=== PATIENT | female | born 1975 | race Caucasian/White ===

== ENCOUNTER 2018-11-09 17:49 | Emergency (ER) | payer SELFPAY ==
[~2018-11-09] VITALS: Ht 165.1 cm; Wt 68.0 kg
[2018-11-09 17:51] VITALS: Ht 165.1 cm; Wt 68.0 kg
[2018-11-09 19:57] VITALS: BP 157/93
== END 2018-11-09 19:57 | disposition home or self-care (01) ==
LOC: ED 17:49
DX: T78.04XA Anaphylactic reaction due to fruits and vegetables, initial encounter (principal); X58.XXXA Exposure to other specified factors, initial encounter
CPT/HCPCS: J0171; J1200; J2930; J3490

== ENCOUNTER 2019-07-07 17:09 | Inpatient (IN) | payer MEDICAID ==
[~2019-07-07] VITALS: Ht 157.5 cm; Wt 67.7 kg
[2019-07-07 17:20] VITALS: Ht 157.5 cm; Wt 67.7 kg
[2019-07-07 18:08] LABS: BASOPHIL % 0.7 % (0-2); PLATELET COUNT 392 x10^3mcL (130-400)
[2019-07-07 18:12] LABS: RED CELL DISTRIBUTION WIDTH 15.1 % (11.5-14.5)
[2019-07-07 18:16] LABS: CALCIUM 8.4 mg/dL (8.5-10.1); CARBON DIOXIDE 28.9 mmol/L (21-32); CHLORIDE SERUM 105 mmol/L (98-107); CREATININE SERUM 0.9 mg/dL (0.6-1.0); GFR1 > 60 mL/min; GLUCOSE SERUM 90 mg/dL (74-106); POTASSIUM SERUM 4.4 mmol/L (3.5-5.1); SODIUM SERUM 138 mmol/L (136-145)
[2019-07-07 18:20] LABS: ALBUMIN 3.5 g/dL (3.4-5.0); ALKALINE PHOSPHATASE 148 U/L (46-116); ALT/SGPT 20 U/L (14-59); AST/SGOT 24 U/L (15-37); BILIRUBIN TOTAL 0.1 mg/dL (0.20-1.00)
[2019-07-07 19:09] LABS: microscopic required? YES; urine erythrocyte TRACE (NEGATIVE)
[2019-07-07 19:18] LABS: AMPHETAMINE QUAL UR NONE DETECTED (See below)
[2019-07-07 19:19] LABS: CALCIUM 8.7 mg/dL (8.5-10.1); MAGNESIUM 2.7 mg/dL (1.8-2.4)
[2019-07-07 21:45] VITALS: BP 118/68
[2019-07-07 21:58] VITALS: BP 151/85
[2019-07-08 04:41] VITALS: BP 134/81
[2019-07-08 06:42] LABS: CARBON DIOXIDE 25.5 mmol/L (21-32); CHLORIDE SERUM 108 mmol/L (98-107); CREATININE SERUM 0.8 mg/dL (0.6-1.0); GFR1 > 60 mL/min; GLUCOSE SERUM 84 mg/dL (74-106); MAGNESIUM 2.3 mg/dL (1.8-2.4); POTASSIUM SERUM 3.7 mmol/L (3.5-5.1); SODIUM SERUM 141 mmol/L (136-145)
[2019-07-08 06:48] LABS: BASOPHIL % 0.2 % (0-2); PLATELET COUNT 356 x10^3mcL (130-400)
[2019-07-08 06:55] LABS: RED CELL DISTRIBUTION WIDTH 15.3 % (11.5-14.5)
[2019-07-08 08:43] VITALS: BP 152/91
[2019-07-08 12:22] VITALS: BP 131/80
[2019-07-08 16:34] VITALS: BP 124/77
[2019-07-08 21:01] VITALS: BP 124/63
[2019-07-09 05:22] VITALS: BP 120/67
[2019-07-09 08:24] VITALS: BP 131/89
[2019-07-09 11:45] VITALS: BP 143/80
[2019-07-09 16:15] VITALS: BP 148/84
[2019-07-09] MEDS ORDERED: ZES10 PO (16:58)
[2019-07-09 18:18] VITALS: BP 148/84
== END 2019-07-09 18:42 | disposition home or self-care (01) | DRG 199 ==
LOC: ED 17:09 → DU 19:16
PROVIDERS: Emergency Medicine; ADMIT Internal Medicine
DX: I16.0 Hypertensive urgency (principal); E83.41 Hypermagnesemia; E87.8 Other disorders of electrolyte and fluid balance, not elsewhere classified; M94.0 Chondrocostal junction syndrome [Tietze]; E83.51 Hypocalcemia; E03.9 Hypothyroidism, unspecified; E78.5 Hyperlipidemia, unspecified; Z68.29 Body mass index [BMI] 29.0-29.9, adult
CPT/HCPCS: 83880; 90658; G0378; J7030; Q0092